=== PATIENT | male | born 1965 | race African-American/Black ===

== ENCOUNTER 2021-02-16 10:11 | Emergency (ER) | payer MEDICARE ==
[2021-02-16] MEDS ORDERED: Boostrix 0.5 ML (Tdap) VIAL ONE (11:11)
[2021-02-16] MEDS ORDERED: Lidocaine 1% w/Epinephrine 1:100K 20 ML VIAL ONE (11:11)
== END 2021-02-16 12:00 | disposition home or self-care (01) ==
LOC: MADERS 10:11
DX: L02.411 Cutaneous abscess of right axilla (principal); L73.9 Follicular disorder, unspecified; M25.512 Pain in left shoulder; M25.511 Pain in right shoulder; F17.210 Nicotine dependence, cigarettes, uncomplicated
CPT/HCPCS: 10060; 90471; 90715